=== PATIENT | male | born 1985 | race Caucasian/White ===

== ENCOUNTER 2016-11-05 03:28 | Observation (INO) | payer OTHER ==
[2016-11-05] MEDS ORDERED: Sodium Chloride 0.9% 1,000 ML IV STA ×3 (03:38→05:52)
[2016-11-05 04:05] LABS: BASO # 0.1 K/uL (0.0-0.2); BASO % 0.8 % (0.0-2.0); EOS % 0.2 % (0.0-4.0); HEMOGLOBIN 15.3 g/dL (12.0-18.0); LYMPH # 3.2 K/uL (1.0-4.3); LYMPH % 28.1 % (20.0-40.0); MEAN CELL VOLUME 87.5 fl (80.0-94.0); MEAN CORPUSCULAR HEMOGLOBIN 29.6 pg (27.0-31.0); MEAN CORPUSCULAR HGB CONC 33.9 g/dL (33.0-37.0); MEAN PLATELET VOLUME 8.7 fl (7.2-11.7); MONO % 8.5 % (0.0-10.0); NEUT # 7.2 K/uL (1.8-7.0); NEUT % 62.4 % (50.0-75.0); NRBC % 0.1 % (0.0-0.0); RBC 5.16 Mil/uL (4.40-5.90); RED CELL DISTRIBUTION WIDTH 13.4 % (11.5-14.5); WHITE BLOOD COUNT 11.6 K/uL (4.8-10.8)
[2016-11-05 04:08] LABS: ALBUMIN 4.7 g/dL (3.5-5.0)
[2016-11-05 04:11] LABS: ALB/GLOB RATIO 1.4 (1.0-2.1); AST/SGOT 29 U/L (17-59); BLOOD UREA NITROGEN 11 mg/dl (9-20); GFR AFRICAN-AMERICAN > 60; GFR NON-AFRICAN AMERICAN > 60
[2016-11-05 04:12] LABS: ALT/SGPT 39 U/L (21-72); CALCIUM 9.2 mg/dL (8.4-10.2)
--- NOTE | 2016-11-05 04:40 | ED PDOC ---
HPI: Psych/Substance Abuse Time Seen by Provider: 11/05/16 03:32 Chief Complaint (Nursing): Alcohol Ingestion Chief Complaint (Provider): Alcohol intoxication History/Exam Limitations: intoxication Onset/Duration Of Symptoms: Hrs Additional Complaint(s): Shan Holcomb is a 31 year old [place] male with no past medical history who presents to the ED accompanied by EMS for evaluation of alcohol intoxication. Patient was actively vomiting upon arrival. Of note, invoked a caveat due to patient being unable to provide history. Past Medical History Reviewed: Historical Data, Nursing Documentation, Vital Signs Vital Signs: Last Vital Signs Temp 97.1 F L 11/05/16 03:37 Pulse 89 11/05/16 03:37 Resp 18 11/05/16 03:37 BP 101/70 11/05/16 03:37 Pulse Ox 96 11/05/16 03:37 - Medical History PMH: No Chronic Diseases - Surgical History Surgical History: No Surg Hx - Family History Family History: States: Unknown Family Hx - Social History Alcohol: Social - Allergies Allergies/Adverse Reactions: Allergies Allergy/AdvReac Type Severity Reaction Status Date / Time No Known Allergies Allergy Verified 11/05/16 03:37 Review of Systems ROS Statement: Except As Marked, All Systems Reviewed And Found Negative Gastrointestinal: Positive for: Vomiting Physical Exam - Reviewed Nursing Documentation Reviewed: Yes Vital Signs Reviewed: Yes - Physical Exam Appears: Positive for: Well, Non-toxic, No Acute Distress Head Exam: Positive for: ATRAUMATIC, NORMAL INSPECTION, NORMOCEPHALIC Skin: Positive for: Normal Color, Warm, Dry Eye Exam: Positive for: Normal appearance, EOMI, PERRL ENT: Positive for: Normal ENT Inspection Neck: Positive for: Normal, Painless ROM, Supple Cardiovascular/Chest: Positive for: Regular Rate, Rhythm. Negative for: Murmur , Tachycardia Respiratory: Positive for: Normal Breath Sounds. Negative for: Wheezing, Respiratory Distress Gastrointestinal/Abdominal: Positive for: Normal Exam, Soft. Negative for: Tenderness Back: Positive for: Normal Inspection Rectal: Positive for: Deferred Extremity: Positive for: Normal ROM Lymphatic: Positive for: Deferred Neurologic/Psych: Positive for: Alert, Oriented, Other (Somnilent but arousable) - Laboratory Results Result Diagrams: 11/05/16 03:50 11/05/16 03:50 - ECG O2 Sat by Pulse Oximetry: 96 (RA) Pulse Ox Interpretation: Normal Medical Decision Making Medical Decision Makin: Initial Impression:31 year old male with alcohol intoxication Initial Plan: * Labs * I.V. fluids * Re-evaluation 699: Patient is signed out to Dr. Dave pending sobriety. Scribe Attestation: Documented by Lucien Camilo acting as a scribe for Maverick Preciado MD. Provider Scribe Attestation: All medical record entries made by the Scribe were at my direction and personally dictated by me. I have reviewed the chart and agree that the record accurately reflects my personal performance of the history, physical exam, medical decision making, and the department course for this patient. I have also personally directed, reviewed, and agree with the discharge instructions and disposition. ED OBSERVATION Date of observation admission: 11/05/16 Time of observation admission: 04:30 - Observation admission statement Patient is being placed in observation because:: Alcohol intoxication - Progress Note Progress Note: 11/05/16 05:26 Time: 0430: --Patient is resting comfortably, vital signs stable 11/05/16 06:00 Time: 0600: --Patient is resting comfortably, vital signs stable Disposition - Clinical Impression Clinical Impression: Alcohol use - Patient ED Disposition Is Patient to be Admitted: Transfer of Care - Disposition Disposition: Transfer of Care Disposition Time: 06:00 Condition: FAIR Patient Signed Over To: Nghia Dave
--- NOTE | 2016-11-05 06:29 | ED PDOC ---
- Laboratory Results Result Diagrams: 11/05/16 03:50 11/05/16 03:50 - ECG O2 Sat by Pulse Oximetry: 96 (RA)
[2016-11-05 07:41] LABS: BARBITURATES, UR NEGATIVE (NEGATIVE); BENZODIAZEPINES, UR NEGATIVE (NEGATIVE); OPIATES, UR NEGATIVE (NEGATIVE); PHENCYCLIDINE, UR NEGATIVE (NEGATIVE)
[2016-11-05] MEDS ORDERED: Potassium Chloride 20 mEq ER Tab PO ONE ×2 (08:29→08:45)
--- NOTE | 2016-11-05 08:29 | ED PDOC ---
- Laboratory Results Result Diagrams: 11/05/16 03:50 11/05/16 03:50 - ECG O2 Sat by Pulse Oximetry: 99 - Progress Re-evaluation Time: 08:28 Condition: Improved (Awake alert no focal neuro deficits) Disposition - Clinical Impression Clinical Impression: Alcohol use - POA Present On Arrival: None - Disposition Disposition: Routine/Home Disposition Time: 08:29 Condition: FAIR
[2016-11-05 12:31] VITALS: BP 105/60; PULSE 94; RESP 16; TEMP 97.1; BMI 28.3
[2016-11-05 19:26] VITALS: O2SAT 96
== END 2016-11-05 09:20 | disposition home or self-care (01) ==
LOC: H.ER 03:28 → H.EROBSV 04:38
PROVIDERS: ADMIT Emergency Medicine; ATTEND Emergency Medicine
DX: F10.129 Alcohol abuse with intoxication, unspecified (principal); Y90.7 Blood alcohol level of 200-239 mg/100 ml